=== PATIENT | female | born 1925 | race Caucasian/White ===

== ENCOUNTER 2017-05-16 09:23 | Inpatient (IN) | payer MEDICARE, OTHER ==
[2017-05-17] MEDS ORDERED: Zolpidem 10 MG Tab PO PRN (15:56)
--- NOTE | 2017-05-17 17:32 | PCM.HP ---
H&P History of Present Illness - General Date of Service: 05/17/17 Admit Problem/Dx: Admission Diagnosis/Problem Admission Diagnosis/Problem Rehabilitation therapy Source of Information: Patient, Family History Limitations: Reports: No Limitations - History of Present Illness Initial Comments - Free Text/Narative: 89-year-old female admitted from rehabilitation. She will [facility] for left hip replacement. She complains of no pain.She has a h/o of stable HLD,HTN,CAD denies pain when asked Pain Score (Numeric/FACES): 0 - Related Data Allergies/Adverse Reactions: Allergies Allergy/AdvReac Type Severity Reaction Status Date / Time No Known Allergies Allergy Verified 03/29/13 18:40 Home Medications: Home Meds Zolpidem [Ambien] 10 mg PO BEDTIME PRN 03/29/13 [History] amLODIPine [Norvasc] 5 mg PO DAILY 03/29/13 [History] Aspirin [Halfprin] 81 mg PO DAILY 05/17/17 [History] Enoxaparin Sodium 40 mg SQ DAILY 05/17/17 [History] Multivit-Min/FA/Lycopene/Lut [Centrum Silver Tablet] 1 each PO Q48H 05/17/17 [ History] Pregabalin [Lyrica] 25 mg PO TID 05/17/17 [History] Simvastatin [Zocor] 20 mg PO DAILY 05/17/17 [History] Social & Family History - Tobacco Use Smoking Status *Q: Never Smoker Second Hand Smoke Exposure: No - Caffeine Use Caffeine Use: Reports: Coffee - Recreational Drug Use Recreational Drug Use: No H&P Review of Systems - Review of Systems: Review Of Systems: ROS reveals no pertinent complaints other than HPI. Exam - Exam Exam: See Below - Vital Signs Vital Signs: Last Vital Signs Temp 98.2 F 05/17/17 14:30 Pulse 81 05/17/17 14:30 Resp 18 05/17/17 14:30 BP 130/80 05/17/17 14:30 Pulse Ox 98 05/17/17 14:30 Weight: 42.728 kg - Exam General: Alert, Oriented, 4 HEENT: PERRLA, Hearing Intact, Mucosa Moist & [place], Nares Patent, Normal Nasal Septum, Posterior Pharynx Clear, Conjunctiva Clear, EOMI, EACs Clear, TMs Clear Neck: Supple, Trachea Midline, 2 Lungs: Clear to Auscultation, Normal Respiratory Effort Cardiovascular: Regular Rate, Regular Rhythm GI/Abdominal Exam: Normal Bowel Sounds, Soft, Non-Tender, No Organomegaly, No Distention, No Abnormal Bruit, No Mass, Pelvis Stable (Female) Exam: Deferred Rectal (Female) Exam: Deferred Back Exam: Normal Inspection, Full Range of Motion, NT Extremities: Normal Inspection, Normal Range of Motion, Non-Tender, No Pedal Edema, Normal Capillary Refill Skin: Warm, Dry, Intact Neurological: Cranial Nerves Intact, Reflexes Equal Bilateral Neuro Extensive - Mental Status: Alert, Oriented x3, Normal Mood/Affect, Normal Cognition Neuro Extensive - Motor, Sensory, Reflexes: CN II-XII Intact, Normal Gait, Normal Reflexes Psychiatric: Alert, Normal Affect, Normal Mood *Q Meaningful Use (ADM) - VTE *Q VTE Criteria *Q: - Stroke *Q Stroke Criteria *Q: - AMI *Q AMI Criteria *Q: - Problem List (1) Status post left hip replacement SNOMED Code(s): 046456425, 272197637, 714607085 ICD Code: Z96.642 - PRESENCE OF LEFT ARTIFICIAL HIP JOINT Status: Acute Current Visit: Yes (2) HLD (hyperlipidemia) SNOMED Code(s): 68073594 ICD Code: E78.5 - HYPERLIPIDEMIA, UNSPECIFIED Status: Chronic Current Visit: Yes Qualifiers: Hyperlipidemia type: unspecified Qualified Code(s): E78.5 - Hyperlipidemia , unspecified (3) HTN (hypertension) SNOMED Code(s): 77371935 ICD Code: I10 - ESSENTIAL (PRIMARY) HYPERTENSION Status: Chronic Current Visit: Yes Qualifiers: Hypertension type: essential hypertension Qualified Code(s): I10 - Essential (primary) hypertension (4) H/O chronic ischemic heart disease SNOMED Code(s): 879597094 ICD Code: Z86.79 - PERSONAL HISTORY OF OTHER DISEASES OF THE CIRCULATORY SYSTEM Status: Chronic Current Visit: Yes Problem List Initiated/Reviewed/Updated: Yes Orders Last 24hrs: Active Orders 24 hr Category Date Time Status Admission Status [Patient Status] [ADT] Routine ADT 05/17/17 14:25 Active Communication Order [RC] ROUTINE Care 05/17/17 15:22 Active Height and Weight [RC] WEEKLY Care 05/17/17 15:55 Active Oxygen Therapy [RC] PRN Care 05/17/17 15:55 Active Up With Assistance [RC] ASDIRECTED Care 05/17/17 15:55 Active VTE/DVT Education [RC] Per Unit Routine Care 05/17/17 15:55 Active Vital Signs [RC] PER UNIT ROUTINE Care 05/17/17 15:55 Active Consult to Physical Therapy [PT Evaluation and Cons 05/17/17 14:50 Active Treatment] [CONS] Routine OT Evaluation and Treatment [CONS] Routine Cons 05/17/17 14:51 Active Regular Diet [DIET] Diet 05/17/17 Dinner Active Aspirin [Halfprin] Med 05/18/17 09:00 Active 81 mg PO DAILY Enoxaparin [Lovenox] Med 05/18/17 09:00 Active 40 mg SUBCUT DAILY Multivitamins,Therapeutic [Thera] Med 05/18/17 09:00 Active 1 each PO Q48H Pregabalin [Lyrica] Med 05/17/17 21:00 Active 25 mg PO TID Simvastatin [Zocor] Med 05/18/17 09:00 Active 20 mg PO DAILY Zolpidem [Ambien] Med 05/17/17 15:56 Active 10 mg PO BEDTIME PRN amLODIPine [Norvasc] Med 05/18/17 09:00 Active 5 mg PO DAILY Resuscitation Status Routine Resus Stat 05/17/17 15:55 Ordered Medication Orders Amlodipine Besylate (Norvasc) 5 mg PO DAILY [facility] Aspirin (Halfprin) 81 mg PO DAILY [facility] Enoxaparin Sodium (Lovenox) 40 mg SUBCUT DAILY [facility] Stop: 06/09/17 09:01 Multivitamins (Thera) 1 each PO Q48H [facility] Pregabalin (Lyrica) 25 mg PO TID [facility] Stop: 05/24/17 14:01 Simvastatin (Zocor) 20 mg PO DAILY [facility] Zolpidem Tartrate (Ambien) 10 mg PO BEDTIME PRN PRN Reason: Insomnia Assessment/Plan Comment:: Admit to swing bed for physical and occupational therapy. Continue DVT prophylaxis, and a regular home medications.
[2017-05-17] MEDS: Pregabalin 25 MG Cap PO SCH (21:06)
[2017-05-18] MEDS: Acetaminophen 325 MG Tab PO PRN ×3 (05:31→22:13)
[2017-05-18] MEDS: Enoxaparin 40 MG/0.4 ML Syringe SUBCUT SCH (09:26)
[2017-05-18] MEDS: Aspirin 81 MG Tab.EC PO SCH (09:26)
[2017-05-18] MEDS: Multivitamins,Therapeutic Tab PO SCH (09:28)
[2017-05-18] MEDS: amLODIPine 5 MG Tab PO SCH (09:28)
[2017-05-18] MEDS: Simvastatin 20 MG Tab PO SCH (09:28)
[2017-05-18] MEDS: Pregabalin 25 MG Cap PO SCH ×3 (09:31→21:23)
[2017-05-18] MEDS: Calcium Carbonate 500 MG Tab.Chew PO PRN (21:23)
[2017-05-18] MEDS: Zolpidem 5 MG Tab PO PRN (22:40)
[2017-05-19] MEDS: Acetaminophen 325 MG Tab PO PRN ×2 (05:13→08:57)
[2017-05-19] MEDS: amLODIPine 5 MG Tab PO SCH (08:55)
[2017-05-19] MEDS: Enoxaparin 40 MG/0.4 ML Syringe SUBCUT SCH (08:55)
[2017-05-19] MEDS: Aspirin 81 MG Tab.EC PO SCH (08:56)
[2017-05-19] MEDS: Pregabalin 25 MG Cap PO SCH ×3 (08:56→21:31)
[2017-05-19] MEDS: Simvastatin 20 MG Tab PO SCH (08:57)
--- NOTE | 2017-05-19 10:32 | PCM.PN ---
- General Info Date of Service: 05/19/17 Admission Dx/Problem (Free Text): Patient states she's having some left hip pain. When she takes no medicines like Tylenol a gets better. She's been call her at home and telling her her pain is bad he's been calling us. - Patient Data Vitals - Most Recent: Last Vital Signs Temp 98.1 F 05/19/17 05:10 Pulse 85 05/19/17 05:10 Resp 16 05/19/17 05:10 BP 146/80 H 05/19/17 08:55 Pulse Ox 95 05/19/17 05:10 Weight - Most Recent: 94 lb 3.2 oz Med Orders - Current: Current Medications Acetaminophen (Tylenol) 650 mg PO Q4H PRN PRN Reason: Pain Last Admin: 05/19/17 08:57 Dose: 650 mg Amlodipine Besylate (Norvasc) 5 mg PO DAILY [facility] Last Admin: 05/19/17 08:55 Dose: 5 mg Aspirin (Halfprin) 81 mg PO DAILY [facility] Last Admin: 05/19/17 08:56 Dose: 81 mg Calcium Carbonate/Glycine (Tums) 500 mg PO Q2H PRN PRN Reason: Indigestion Last Admin: 05/18/17 21:23 Dose: 500 mg Enoxaparin Sodium (Lovenox) 40 mg SUBCUT DAILY [facility] Stop: 06/09/17 09:01 Last Admin: 05/19/17 08:55 Dose: 40 mg Multivitamins (Thera) 1 each PO Q48H [facility] Last Admin: 05/18/17 09:28 Dose: 1 each Pregabalin (Lyrica) 25 mg PO TID [facility] Stop: 05/24/17 14:01 Last Admin: 05/19/17 08:56 Dose: 25 mg Simvastatin (Zocor) 20 mg PO DAILY [facility] Last Admin: 05/19/17 08:57 Dose: 20 mg Zolpidem Tartrate (Ambien) 10 mg PO BEDTIME PRN PRN Reason: Insomnia Zolpidem Tartrate (Ambien) 5 mg PO BEDTIME PRN PRN Reason: Sleep Last Admin: 05/18/17 22:40 Dose: 5 mg - Exam General: Alert, Oriented Lungs: Normal Respiratory Effort Extremities: No Pedal Edema - Problem List & Annotations (1) Status post left hip replacement SNOMED Code(s): 523188511, 034596875, 014696622 Code(s): Z96.642 - PRESENCE OF LEFT ARTIFICIAL HIP JOINT Status: Acute Current Visit: Yes - Problem List Review Problem List Initiated/Reviewed/Updated: Yes - My Orders Last 24 Hours: My Active Orders 05/18/17 11:20 Calcium Carbonate [Tums] 500 mg PO Q2H PRN - Plan Plan:: 1. Tylenol 1000 mg 3 times a day scheduled. Hopefully this will help her with her pain.
[2017-05-19] MEDS: Acetaminophen 500 MG Tab PO SCH ×2 (13:40→21:31)
[2017-05-19] MEDS: Zolpidem 5 MG Tab PO PRN (22:58)
[2017-05-20] MEDS: Aspirin 81 MG Tab.EC PO SCH (08:41)
[2017-05-20] MEDS: Acetaminophen 500 MG Tab PO SCH ×3 (08:42→21:09)
[2017-05-20] MEDS: Enoxaparin 40 MG/0.4 ML Syringe SUBCUT SCH (08:42)
[2017-05-20] MEDS: amLODIPine 5 MG Tab PO SCH (08:42)
[2017-05-20] MEDS: Multivitamins,Therapeutic Tab PO SCH (08:42)
[2017-05-20] MEDS: Simvastatin 20 MG Tab PO SCH (08:43)
[2017-05-20] MEDS: Pregabalin 25 MG Cap PO SCH (08:46)
[2017-05-20] MEDS: Zolpidem 5 MG Tab PO PRN (22:34)
--- NOTE | 2017-05-21 08:52 | PCM.PN ---
- General Info Date of Service: 05/21/17 Admission Dx/Problem (Free Text): Patient denies any left hip pain. She has some pain the other day and we started her on thousand TYLENOL 3 times a day. She was also having some confusion as we stopped her Lyrica. The nurses report less confusion today. She has no concerns today. - Patient Data Vitals - Most Recent: Last Vital Signs Temp 99.2 F 05/20/17 08:00 Pulse 98 05/20/17 08:00 Resp 18 05/20/17 08:00 BP 117/71 05/20/17 08:42 Pulse Ox 95 05/20/17 08:00 Weight - Most Recent: 94 lb 3.2 oz Med Orders - Current: Current Medications Acetaminophen (Tylenol Extra Strength) 1,000 mg PO TID [facility] Last Admin: 05/20/17 21:09 Dose: 1,000 mg Amlodipine Besylate (Norvasc) 5 mg PO DAILY [facility] Last Admin: 05/20/17 08:42 Dose: 5 mg Aspirin (Halfprin) 81 mg PO DAILY [facility] Last Admin: 05/20/17 08:41 Dose: 81 mg Calcium Carbonate/Glycine (Tums) 500 mg PO Q2H PRN PRN Reason: Indigestion Last Admin: 05/18/17 21:23 Dose: 500 mg Enoxaparin Sodium (Lovenox) 40 mg SUBCUT DAILY [facility] Stop: 06/09/17 09:01 Last Admin: 05/20/17 08:42 Dose: 40 mg Multivitamins (Thera) 1 each PO Q48H [facility] Last Admin: 05/20/17 08:42 Dose: 1 each Simvastatin (Zocor) 20 mg PO DAILY [facility] Last Admin: 05/20/17 08:43 Dose: 20 mg Zolpidem Tartrate (Ambien) 10 mg PO BEDTIME PRN PRN Reason: Insomnia Zolpidem Tartrate (Ambien) 5 mg PO BEDTIME PRN PRN Reason: Sleep Last Admin: 05/20/17 22:34 Dose: 5 mg Discontinued Medications Acetaminophen (Tylenol) 650 mg PO Q4H PRN PRN Reason: Pain Last Admin: 05/19/17 08:57 Dose: 650 mg Pregabalin (Lyrica) 25 mg PO TID [facility] Stop: 05/24/17 14:01 Last Admin: 05/20/17 08:46 Dose: 25 mg - Exam General: Alert, Oriented, Cooperative Lungs: Clear to Auscultation, Normal Respiratory Effort Cardiovascular: Regular Rate, Regular Rhythm, No Murmurs Skin: Other Wound/Incisions: Healing Well - Problem List & Annotations (1) Status post left hip replacement SNOMED Code(s): 569246420, 681150242, 330003968 Code(s): Z96.642 - PRESENCE OF LEFT ARTIFICIAL HIP JOINT Status: Acute Current Visit: Yes - Problem List Review Problem List Initiated/Reviewed/Updated: Yes - Plan Plan:: 1. Continue current care.
[2017-05-21] MEDS: Acetaminophen 500 MG Tab PO SCH ×3 (09:05→20:33)
[2017-05-21] MEDS: Simvastatin 20 MG Tab PO SCH (09:05)
[2017-05-21] MEDS: Aspirin 81 MG Tab.EC PO SCH (09:05)
[2017-05-21] MEDS: amLODIPine 5 MG Tab PO SCH (09:05)
[2017-05-21] MEDS: Enoxaparin 40 MG/0.4 ML Syringe SUBCUT SCH (09:05)
[2017-05-22] MEDS: Zolpidem 5 MG Tab PO PRN (00:31)
[2017-05-22] MEDS: Aspirin 81 MG Tab.EC PO SCH (08:07)
[2017-05-22] MEDS: Enoxaparin 40 MG/0.4 ML Syringe SUBCUT SCH (08:08)
[2017-05-22] MEDS: Multivitamins,Therapeutic Tab PO SCH (08:08)
[2017-05-22] MEDS: Simvastatin 20 MG Tab PO SCH (08:08)
[2017-05-22] MEDS: Acetaminophen 500 MG Tab PO SCH ×3 (08:08→21:00)
[2017-05-22] MEDS: amLODIPine 5 MG Tab PO SCH (08:08)
[2017-05-22] MEDS: Calcium Carbonate 500 MG Tab.Chew PO PRN (19:21)
[2017-05-23] MEDS: Aspirin 81 MG Tab.EC PO SCH (08:22)
[2017-05-23] MEDS: Enoxaparin 40 MG/0.4 ML Syringe SUBCUT SCH (08:22)
[2017-05-23] MEDS: amLODIPine 5 MG Tab PO SCH (08:24)
[2017-05-23] MEDS: Acetaminophen 500 MG Tab PO SCH ×3 (08:30→20:17)
[2017-05-23] MEDS: Simvastatin 20 MG Tab PO SCH (08:31)
[2017-05-23] MEDS: Zolpidem 5 MG Tab PO PRN (22:58)
[2017-05-24] MEDS: Acetaminophen 500 MG Tab PO SCH ×3 (08:18→21:31)
[2017-05-24] MEDS: amLODIPine 5 MG Tab PO SCH (08:18)
[2017-05-24] MEDS: Aspirin 81 MG Tab.EC PO SCH (08:18)
[2017-05-24] MEDS: Multivitamins,Therapeutic Tab PO SCH (08:19)
[2017-05-24] MEDS: Enoxaparin 40 MG/0.4 ML Syringe SUBCUT SCH (08:19)
[2017-05-24] MEDS: Simvastatin 20 MG Tab PO SCH (08:19)
[2017-05-24] MEDS: Zolpidem 5 MG Tab PO PRN (23:28)
[2017-05-25] MEDS: Enoxaparin 40 MG/0.4 ML Syringe SUBCUT SCH (09:08)
[2017-05-25] MEDS: Aspirin 81 MG Tab.EC PO SCH (09:08)
[2017-05-25] MEDS: amLODIPine 5 MG Tab PO SCH (09:09)
[2017-05-25] MEDS: Acetaminophen 500 MG Tab PO SCH ×3 (09:09→21:30)
[2017-05-25] MEDS: Simvastatin 20 MG Tab PO SCH (09:10)
[2017-05-26] MEDS: Simvastatin 20 MG Tab PO SCH (08:21)
[2017-05-26] MEDS: Aspirin 81 MG Tab.EC PO SCH (08:21)
[2017-05-26] MEDS: Acetaminophen 500 MG Tab PO SCH ×3 (08:21→21:30)
[2017-05-26] MEDS: Multivitamins,Therapeutic Tab PO SCH (08:21)
[2017-05-26] MEDS: amLODIPine 5 MG Tab PO SCH (08:22)
[2017-05-26] MEDS: Enoxaparin 40 MG/0.4 ML Syringe SUBCUT SCH (08:22)
[2017-05-27] MEDS: Zolpidem 5 MG Tab PO PRN ×2 (00:05→23:04)
[2017-05-27] MEDS: Simvastatin 20 MG Tab PO SCH (08:41)
[2017-05-27] MEDS: Aspirin 81 MG Tab.EC PO SCH (08:42)
[2017-05-27] MEDS: amLODIPine 5 MG Tab PO SCH (08:42)
[2017-05-27] MEDS: Acetaminophen 500 MG Tab PO SCH ×3 (08:42→21:18)
[2017-05-27] MEDS: Enoxaparin 40 MG/0.4 ML Syringe SUBCUT SCH (08:43)
[2017-05-28] MEDS: Aspirin 81 MG Tab.EC PO SCH (08:11)
[2017-05-28] MEDS: Simvastatin 20 MG Tab PO SCH (08:11)
[2017-05-28] MEDS: Acetaminophen 500 MG Tab PO SCH ×3 (08:11→21:58)
[2017-05-28] MEDS: amLODIPine 5 MG Tab PO SCH (08:12)
[2017-05-28] MEDS: Multivitamins,Therapeutic Tab PO SCH (08:12)
[2017-05-28] MEDS: Enoxaparin 40 MG/0.4 ML Syringe SUBCUT SCH (08:12)
[2017-05-28] MEDS: Zolpidem 5 MG Tab PO PRN (22:55)
[2017-05-29] MEDS: Acetaminophen 500 MG Tab PO SCH ×4 (05:26→21:07)
[2017-05-29] MEDS: Aspirin 81 MG Tab.EC PO SCH (09:30)
[2017-05-29] MEDS: amLODIPine 5 MG Tab PO SCH (09:30)
[2017-05-29] MEDS: Enoxaparin 40 MG/0.4 ML Syringe SUBCUT SCH (09:30)
[2017-05-29] MEDS: Simvastatin 20 MG Tab PO SCH (09:31)
[2017-05-29] MEDS: Zolpidem 5 MG Tab PO PRN (22:30)
[2017-05-30] MEDS: amLODIPine 5 MG Tab PO SCH (08:57)
[2017-05-30] MEDS: Enoxaparin 40 MG/0.4 ML Syringe SUBCUT SCH (08:57)
[2017-05-30] MEDS: Aspirin 81 MG Tab.EC PO SCH (08:57)
[2017-05-30] MEDS: Acetaminophen 500 MG Tab PO SCH ×3 (08:58→20:30)
[2017-05-30] MEDS: Simvastatin 20 MG Tab PO SCH (08:58)
[2017-05-30] MEDS: Multivitamins,Therapeutic Tab PO SCH (08:58)
[2017-05-31] MEDS: Acetaminophen 500 MG Tab PO PRN (03:48)
[2017-05-31] MEDS: Enoxaparin 40 MG/0.4 ML Syringe SUBCUT SCH (08:20)
[2017-05-31] MEDS: Aspirin 81 MG Tab.EC PO SCH (08:20)
[2017-05-31] MEDS: Acetaminophen 500 MG Tab PO SCH ×3 (08:21→20:27)
[2017-05-31] MEDS: amLODIPine 5 MG Tab PO SCH (08:21)
[2017-05-31] MEDS: Simvastatin 20 MG Tab PO SCH (08:21)
[2017-05-31] MEDS: Zolpidem 5 MG Tab PO PRN (21:53)
[2017-06-01] MEDS: Enoxaparin 40 MG/0.4 ML Syringe SUBCUT SCH (09:06)
[2017-06-01] MEDS: Aspirin 81 MG Tab.EC PO SCH (09:07)
[2017-06-01] MEDS: Multivitamins,Therapeutic Tab PO SCH (09:07)
[2017-06-01] MEDS: Simvastatin 20 MG Tab PO SCH (09:07)
[2017-06-01] MEDS: amLODIPine 5 MG Tab PO SCH (09:07)
[2017-06-01] MEDS: Acetaminophen 500 MG Tab PO SCH ×3 (09:07→20:25)
[2017-06-01] MEDS: Zolpidem 5 MG Tab PO PRN (21:12)
[2017-06-02] MEDS: Aspirin 81 MG Tab.EC PO SCH (08:43)
[2017-06-02] MEDS: Simvastatin 20 MG Tab PO SCH (08:43)
[2017-06-02] MEDS: amLODIPine 5 MG Tab PO SCH (08:43)
[2017-06-02] MEDS: Acetaminophen 500 MG Tab PO SCH ×3 (08:43→20:06)
[2017-06-02] MEDS: Enoxaparin 40 MG/0.4 ML Syringe SUBCUT SCH (08:43)
[2017-06-02] MEDS: Zolpidem 5 MG Tab PO PRN (22:58)
[2017-06-03] MEDS: Enoxaparin 40 MG/0.4 ML Syringe SUBCUT SCH (08:24)
[2017-06-03] MEDS: Simvastatin 20 MG Tab PO SCH (08:25)
[2017-06-03] MEDS: amLODIPine 5 MG Tab PO SCH (08:25)
[2017-06-03] MEDS: Aspirin 81 MG Tab.EC PO SCH (08:25)
[2017-06-03] MEDS: Acetaminophen 500 MG Tab PO SCH ×3 (08:25→21:56)
[2017-06-03] MEDS: Multivitamins,Therapeutic Tab PO SCH (08:41)
[2017-06-03] MEDS: Zolpidem 5 MG Tab PO PRN (22:00)
[2017-06-04] MEDS: Aspirin 81 MG Tab.EC PO SCH (08:10)
[2017-06-04] MEDS: Acetaminophen 500 MG Tab PO SCH ×3 (08:11→21:52)
[2017-06-04] MEDS: amLODIPine 5 MG Tab PO SCH (08:11)
[2017-06-04] MEDS: Simvastatin 20 MG Tab PO SCH (08:11)
[2017-06-04] MEDS: Enoxaparin 40 MG/0.4 ML Syringe SUBCUT SCH (10:17)
[2017-06-04] MEDS: Zolpidem 5 MG Tab PO PRN (21:53)
[2017-06-05] MEDS: amLODIPine 5 MG Tab PO SCH (08:38)
[2017-06-05] MEDS: Aspirin 81 MG Tab.EC PO SCH (08:38)
[2017-06-05] MEDS: Acetaminophen 500 MG Tab PO SCH ×3 (08:39→20:09)
[2017-06-05] MEDS: Simvastatin 20 MG Tab PO SCH (08:39)
[2017-06-05] MEDS: Multivitamins,Therapeutic Tab PO SCH (08:39)
[2017-06-05] MEDS: Enoxaparin 40 MG/0.4 ML Syringe SUBCUT SCH (09:07)
[2017-06-05] MEDS: Zolpidem 5 MG Tab PO PRN (20:09)
[2017-06-05] MEDS: Acetaminophen 500 MG Tab PO PRN (23:58)
[2017-06-06] MEDS: Aspirin 81 MG Tab.EC PO SCH (08:27)
[2017-06-06] MEDS: amLODIPine 5 MG Tab PO SCH (08:27)
[2017-06-06] MEDS: Simvastatin 20 MG Tab PO SCH (08:28)
[2017-06-06] MEDS: Acetaminophen 500 MG Tab PO SCH ×3 (08:28→20:33)
[2017-06-06] MEDS: Enoxaparin 40 MG/0.4 ML Syringe SUBCUT SCH (09:39)
[2017-06-07] MEDS: Acetaminophen 500 MG Tab PO SCH ×2 (09:04→13:28)
[2017-06-07] MEDS: amLODIPine 5 MG Tab PO SCH (09:04)
[2017-06-07] MEDS: Simvastatin 20 MG Tab PO SCH (09:04)
[2017-06-07] MEDS: Aspirin 81 MG Tab.EC PO SCH (09:04)
[2017-06-07] MEDS: Multivitamins,Therapeutic Tab PO SCH (09:04)
[2017-06-07] MEDS: Enoxaparin 40 MG/0.4 ML Syringe SUBCUT SCH (09:05)
--- NOTE | 2017-06-08 03:30 | DISCH ---
DISCHARGE DATE: 06/07/2017 REASON FOR ADMISSION: 1. Status post left hip surgery. 2. Chronic stable medical conditions, that is hyperlipidemia, hypertension, and history of ischemic heart disease. BRIEF HISTORY AND HOSPITAL COURSE: An 89-year-old female who was admitted after left hip replacement at [place]. She was admitted for physical strengthening and rehab. She has a history of hypertension, hyperlipidemia, and coronary artery disease, stable. She had mild confusion due to Lyrica, which was discontinued. She did well with physical therapy, and was discharged home on the 1st with home health and physical therapy. DISCHARGE MEDICATIONS: 1. Acetaminophen 500 mg p.o. t.i.d. 2. Amlodipine 5 mg daily. 3. Aspirin 81 mg a day. 4. Lovenox 40 mg daily subcutaneously for 2 more days. 5. Zocor 20 mg a day. FOLLOWUP: She will continue with physical rehab with Home Health and follow up with Orthopedics as previously scheduled and her PCP in 1 week. Please note that I spent less than 30 minutes in the discharge of the patient. /[id number] LIAM/LM
== END 2017-06-07 13:30 | disposition home health service (06) | DRG 561 ==
LOC: FB.MS 05-17 14:19
PROVIDERS: ADMIT Family Medicine; ATTEND Family Medicine
DX: Z47.1 Aftercare following joint replacement surgery (principal); Z96.642 Presence of left artificial hip joint; E78.5 Hyperlipidemia, unspecified; I10 Essential (primary) hypertension; I25.10 Atherosclerotic heart disease of native coronary artery without angina pectoris; Z95.1 Presence of aortocoronary bypass graft; Z79.82 Long term (current) use of aspirin; Z79.899 Other long term (current) drug therapy
CPT/HCPCS: 36415; 80048; 80053; 81001; 85018; 85027; 97110-GO; 97110-GP; 97116-GP; 97161-GP; 97165-GO; 97530-GO; 97530-GO-KX; 97530-GP; 97535-GO; A9270-GY; J1650